=== PATIENT | male | born 1955 | race Caucasian/White ===

== ENCOUNTER 2018-12-01 08:18 | Emergency (ER) | payer MEDICARE ==
[~2018-12-01] VITALS: Ht 182.9 cm; Wt 89.3 kg
[2018-12-01 08:28] VITALS: BP 155/83
[2018-12-01] MEDS ORDERED: GABA600T PO (08:36)
[2018-12-01] MEDS ORDERED: QUET300T2 PO (08:36)
[2018-12-01] MEDS ORDERED: LIT300C PO (08:36)
[2018-12-01] MEDS ORDERED: LAMO100T2 PO (08:36)
[2018-12-01] MEDS ORDERED: BUSP15TA8 PO (08:36)
== END 2018-12-01 08:57 | disposition home or self-care (01) ==
LOC: ER 08:19
DX: F31.9 Bipolar disorder, unspecified (principal); Z76.0 Encounter for issue of repeat prescription; E03.9 Hypothyroidism, unspecified; G62.9 Polyneuropathy, unspecified; Z79.899 Other long term (current) drug therapy
CPT/HCPCS: 99283

== ENCOUNTER 2018-12-03 11:11 | Emergency (ER) | payer MEDICARE ==
[~2018-12-03] VITALS: Ht 182.9 cm; Wt 266.4 kg
[~2018-12-03 11:11] MED LIST: BUSP15TA8 PO; GABA600T PO; LAMO100T2 PO; LIT300C PO; QUET300T2 PO
[2018-12-03 11:14] VITALS: BP 142/85
[2018-12-03] MEDS ORDERED: LITH600C PO (13:03)
== END 2018-12-03 13:30 | disposition home or self-care (01) ==
LOC: ER 11:12
DX: F31.9 Bipolar disorder, unspecified (principal); Z76.0 Encounter for issue of repeat prescription; E03.9 Hypothyroidism, unspecified; Z79.899 Other long term (current) drug therapy
CPT/HCPCS: 99284

== ENCOUNTER 2019-04-17 10:08 | Emergency (ER) | payer MEDICARE ==
[~2019-04-17] VITALS: Ht 193 cm; Wt 187.4 kg
[~2019-04-17 10:08] MED LIST changes: -LAMO100T2 PO; +LITH600C PO
[2019-04-17 10:11] VITALS: BP 136/89
[2019-04-17] MEDS ORDERED: QUET300T2 PO (10:46)
[2019-04-17] MEDS ORDERED: LITH600C PO (10:46)
[2019-04-17] MEDS ORDERED: LIT300C PO (10:46)
[2019-04-17] MEDS ORDERED: GABA-532 PO (10:46)
[2019-04-17] MEDS ORDERED: LAMO100T65 PO (10:46)
[2019-04-17] MEDS ORDERED: BUS15T PO (10:46)
== END 2019-04-17 10:55 | disposition home or self-care (01) ==
LOC: ER 10:10
DX: Z00.00 Encounter for general adult medical examination without abnormal findings (principal); E03.9 Hypothyroidism, unspecified; F31.9 Bipolar disorder, unspecified; Z79.899 Other long term (current) drug therapy
CPT/HCPCS: 99283